=== PATIENT | male | born 1955 | race Caucasian/White ===

== ENCOUNTER → 2022-11-01 14:48 | Outpatient (CLI) | payer MEDICARE, SELFPAY ==
--- NOTE | 2022-11-01 14:53 | MR_ITS ---
PROCEDURE INFORMATION: Exam: MR Lumbar Spine Without Contrast Exam date and time: 11/01/2022 2:55 PM Age: 66 years old Clinical indication: Low back pain; Additional info: Bilateral lbp worsr on left side. Right leg pain, numbness and tingling. TECHNIQUE: Imaging protocol: Magnetic resonance imaging of the lumbar spine without contrast. COMPARISON: No relevant prior studies available. FINDINGS: Bones/joints: Unremarkable. No fracture. Normal alignment. Spinal cord: Visualized cord, conus medullaris and cauda equina are unremarkable without compression. L1-L2: No significant disc bulge or herniation. No severe spinal canal stenosis. No significant neural foraminal narrowing. L2-L3: There is a small disc bulge at L2-L3 with bilateral facet arthropathy causes moderate canal narrowing (image 16 series 7) as well as moderate left and mild right neural foraminal narrowing. L3-L4: There is a small disc bulge at L3-L4 with bilateral facet arthropathy causes mild canal narrowing (image 22 series 7), there is mild bilateral neural foraminal narrowing. L4-L5: At L4-L5, there is a right eccentric disc bulge which causes moderate to severe canal narrowing (image 26 series 7) with severe right and mild left neural foraminal narrowing. L5-S1: There is a diffuse disc bulge at L5-S1 which causes moderate to severe canal narrowing (image 31 series 7) with severe bilateral neural foraminal narrowing. Soft tissues: Unremarkable. IMPRESSION: Multilevel degenerative disease as above with degeneration most pronounced at L4-L5 and L5-S1.
--- NOTE | 2022-11-01 14:53 | MR_ITS ---
PROCEDURE INFORMATION: Exam: MR Cervical Spine Without Contrast Exam date and time: 11/01/2022 2:55 PM Age: 66 years old Clinical indication: Neck pain; Additional info: Left sided neck pain with shoulder pain. No injury or trauma TECHNIQUE: Imaging protocol: Magnetic resonance imaging of the cervical spine without contrast. COMPARISON: No relevant prior studies available. FINDINGS: Bones/joints: There is a diffuse disc bulge with bilateral facet arthropathy causes [id number] canal narrowing as well as moderate bilateral neural foraminal narrowing. Spinal cord: Normal signal. No cord compression. C2-C3: No significant disc bulge or herniation. No severe spinal canal stenosis. No significant neural foraminal narrowing. C3-C4: There is a mild diffuse disc bulge and bilateral facet arthropathy at C3-C4 which causes mild canal narrowing (image 9 series 5). There is mild left neural foraminal narrowing. C4-C5: There is a diffuse disc bulge at C4-C5 without significant canal or neural foraminal narrowing. C5-C6: There is a moderate disc bulge at C5-C6 with moderate associated canal narrowing (image 17 series 5), there is severe right and mild left neural foraminal narrowing. C6-C7: No significant disc bulge or herniation. No severe spinal canal stenosis. No significant neural foraminal narrowing. C7-T1: No significant disc bulge or herniation. No severe spinal canal stenosis. No significant neural foraminal narrowing. Soft tissues: Unremarkable. Vasculature: Expected flow voids in the vertebral arteries. IMPRESSION: Multilevel degenerative disease as detailed above, findings are most pronounced at C3-C4 and C5-C6
== END ==
LOC: RAD 14:48
PROVIDERS: PCP Physician Assistant Medical; Visit Provider Physician Assistant Medical
DX: M54.41 Lumbago with sciatica, right side (principal); M54.2 Cervicalgia; G89.29 Other chronic pain
CPT/HCPCS: 72141; 72148; 76376

== ENCOUNTER → 2022-11-24 11:48 | Outpatient (CLI) | payer MEDICARE, SELFPAY ==
--- NOTE | 2022-11-24 | CA_ITS ---
APPROVED REPORT Exam: Pharmacologic Technologist: Josee Galarza Ht: 5 ft 10 in Wt: 191 lbs BSA: 2.05 m2 HR: 76 bpm BP: 160/79 mmHg Rhythm: NSR Indications: CAD, HX OF CABG, Pre Op Clearance Medical History Medications: Aspirin,,,,, Pravastatin,,,,, Metformin,,,,, Carvedilol,,,,, Zolpidem,,,,, DulOXETINE,,,,, Hydrocodone-Acetaminophen,,,,, Furosemide,,,,, Stress Test Details Test: LEXISCAN HR Resting HR: 74 bpm Max Heart Rate (APMHR): 152 bpm Max HR Achieved: 79 bpm Target HR (85% APMHR): 129 bpm % of APMHR: 52 Recovery HR: 72 bpm BP Resting BP: 160.0/79.0 mmHg Max BP: 160.0/79.0 mmHg Recovery BP: 137.0/69.0 mmHg ECG Resting ECG: Normal sinus rhythm, PACs, rightward axis, borderline voltage criteria for LVH, ST abnormalities inferiorly and laterally. Cannot rule out old lateral or septal TN. Stress ECG: No significant ST changes Arrhythmia: PACs, PVCs Clinical Exercise duration: 04:32 min Highest Stage Achieved: Stress ECG Conclusion Symptoms: Shortness of air, mild stomach discomfort. No chest pain. Arrhythmias/Ectopy: Rare PVC. Frequent PACs. ST-T Changes: No significant ST changes Conclusion: Non-diagnostic Lexiscan stress due to baseline abnormalities. Myoview images reported separately. Test Summary REST . . . . . . . Resting REST 02:45 . . 74 . 160/ 79 . . Stage 1 01:00 . . 68 . . . . Stage 2 01:00 . . 76 . . . . Stage 3 01:00 . . 75 . 114/ 68 . . Stage 4 01:00 . . 73 . 135/ 72 . . Stage 4 01:32 . . 68 . 135/ 72 . Stop exercise at 04:32 RECOVERY 01:00 . . 79 . . . . RECOVERY 02:00 . . 69 . . . . RECOVERY 03:00 . . 72 . 141/ 75 . . RECOVERY 04:00 . . 70 . 141/ 75 . . RECOVERY 04:33 . . 76 . 137/ 69 . . Electronically signed by : Henrietta Bryant MD 12/04/2022 19:27:56
--- NOTE | 2022-11-24 11:51 | NM_ITS ---
APPROVED REPORT Exam: Nuclear Stress Test Indication: CAD, CABG X 5, DM , HYPERLIPIDEMIA, FM HX, SOB, PRE-OP Patient Location: Outpatient Stress Tech: Josee Galarza [place] Tech:WILBUR Riley RT(R)(N) Ht: 5 ft 10 in Wt: 192 lbs HR: 74 bpm BP: 160/79 mmHg BSA: 2.05 m2 Rhythm: NSR TID: 0.94 BMI: 27.5 History: CAD, CABG X 5, DM , HYPERLIPIDEMIA, FM HX, SOB, PRE-OP Procedure: Patient received 0.4 mg of intravenous Lexiscan, resting heart rate 74 bpm, resting blood pressure 160/79 mmHg, with Lexiscan maximum heart rate achieved was 76 bpm which is % of the maximum predicted heart rate and blood pressure was 114/68 mmHg. With Lexiscan, patient denied any complaint of chest pain. Cardiac Stress and Resting SPECT Images: Cardiac Stress and Resting SPECT images were obtained using technetium 99m Myoview 31.7 mCi stress and 10.51 mCi at rest. Resting and stress imaging in both supine and prone positions demonstrate a medium sized, moderate, fixed perfusion defect in the mid to distal anterior and anteroapical regions, as well as a predominantly fixed perfusion defect in the basal inferior LV wall with minimal regions of reversibility. Gated imaging demonstrates mild to moderate reduction in LV systolic function. There is moderate hypokinesis of the basal inferior LV wall at the distal anterior LV wall. LVEF is calculated at 40%. Conclusion: Medium sized, moderate, fixed perfusion defect in the mid to distal anterior and anteroapical regions, as well as a predominantly fixed perfusion defect in the basal inferior LV wall with minimal regions of reversibility. 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 Gated imaging demonstrates mild to moderate reduction in LV systolic function. There is moderate hypokinesis of the basal inferior LV wall at the distal anterior LV wall. LVEF is calculated at 40%. Electronically signed by : Henrietta Bryant MD 12/04/2022 19:33:57
--- NOTE | 2022-11-24 12:28 | CA_ITS ---
APPROVED REPORT EXAM: Comprehensive 2D, Doppler, and color-flow Echocardiogram Access Nurse: Genesis Oliveros, RCS, RVS Ht: 5 ft 10 in Wt: 192lbs BSA: 2.05 BP: 161/89 mmHg Indications: CABG, AK, Hx-CAD, CM, SOB, Pre-op clearance 2D Dimensions IVSd 0.94 cm M: 0.6-1.2 LVEF (Visual) 51.00 % PWd 1.11 cm M: 0.6 - 1.2 LA Volume 54.30 mL LVDd 5.72 cm M: 4.2 - 5.9 LA Volume Index 26.49 mL/m2 (M/F) 16-34 LVDs 4.21 cm M: 2.5 - 4.0 Aortic Root 3.14 cm M: 3.1 - 3.7 Left Atrium 4.30 cm M: 3.0 - 4.0 LVOT 2.09 cm (M/F) 1.5-2.5 M-Mode Dimensions LA Diam 4.77 cm (1.9-4.0) Ao Diam 3.22 cm (2.0-3.7) EPSs 1.37 cm TAPSE 2.13 (<1.7) LV Diastology E Decel Time 223.00 (160-240 msec) E/A Ratio 0.83 MED E' 6.30 (< 7 cm/sec) MED A' 10.30 cm/s E'/MED E' Ratio 8.13 (>14) LAT E' 9.20 (<10 cm/sec) LAT A' 10.80 cm/s E/LAT E' Ratio 5.57 (>14) Aortic Valve LVOT Max 70.00 (70-110 cm/s) LVOT VTI 12.57 cm AoV Peak Randy. 98.00 (50-130 cm/s) AO Peak GR. 3.90 mmHg AO Mean GR. 1.90 (<5 mmHg) AO VTI 18.15 (18-25 cm) GEORGE (VTI) 2.38 (2.5-4.5 cm2) Mitral Valve MV A Velocity 62.00 (40-130 cm/s) E/A Ratio 0.83 MV Decel. Time 223.00 (160-240 ms) Pulmonary Valve PV Peak Velocity 90.00 (50-150 cm/s) Left Ventricle The left ventricle is normal size. The left ventricular systolic function is low normal. The left ventricular ejection fraction is within the normal range. There is normal left ventricular wall thickness. There is mild hypokinesis of the anterior and anteroseptal LV powell The left ventricular diastolic function is normal. LVEF is 50%. Right Ventricle The right ventricle is normal size. The right ventricular systolic function is normal. Atria The left atrium size is normal. The right atrium size is normal. There is no Doppler evidence of interatrial shunt. Aortic Valve The aortic valve is mildly thickened. There is no aortic valvular stenosis. No aortic regurgitation is present. Mitral Valve The mitral valve is mildly thickened. No evidence of mitral valve stenosis. Trace mitral regurgitation. Tricuspid Valve The tricuspid valve leaflets are thin and pliable. Trace tricuspid regurgitation. RVSP is normal. Pulmonic Valve The pulmonary valve is normal in structure. Mild pulmonic regurgitation. Great Vessels The aortic root is normal in size. The ascending aorta is not well visualized. IVC is normal in size and collapses >50% with inspiration. Pericardium There is no pericardial effusion. Other Information Study Quality: Fair Conclusion Low-normal LV systolic function (LVEF 50%) Mild hypokinesis of the anterior and anteroseptal LV powell No significant valvular stenosis or regurgitation Electronically signed by : Henrietta Bryant, 11/29/2022 12:04:35
== END ==
LOC: RAD 11:49
PROVIDERS: PCP Family Medicine; Visit Provider Physician Assistant
DX: E11.9 Type 2 diabetes mellitus without complications (principal); I25.2 Old myocardial infarction; R07.9 Chest pain, unspecified; Z95.1 Presence of aortocoronary bypass graft; Z79.84 Long term (current) use of oral hypoglycemic drugs
CPT/HCPCS: 78452; 93017; 93306; A9502; J2785

== ENCOUNTER → 2022-12-23 17:10 | Outpatient (CLI) | payer MEDICARE, SELFPAY ==
[2022-12-23 17:51] LABS: Anion Gap 14.3 mEq/L (5-15); Blood Urea Nitrogen 18 mg/dl (9-20); Carbon Dioxide 29 mmol/L (22.0-30.0); Chloride 97 mmol/L (98-107); Estimated Glomerular Filt Rate 74 ml/min (>60); GFR (African American) 90 ML/MIN (>60); Glucose 279 mg/dl (74-100); Potassium 4.3 mmoL/L (3.5-5.1); Sodium 136 mmol/L (136-145)
[2022-12-23 18:00] LABS: NT Pro Brain Natriuretic Pep. 355 pg/mL (0-125)
== END ==
PROVIDERS: PCP Physician Assistant; Visit Provider Physician Assistant
DX: E11.9 Type 2 diabetes mellitus without complications (principal); I25.2 Old myocardial infarction; Z95.1 Presence of aortocoronary bypass graft; I50.1 Left ventricular failure, unspecified; I11.0 Hypertensive heart disease with heart failure; Z87.891 Personal history of nicotine dependence; Z79.84 Long term (current) use of oral hypoglycemic drugs
CPT/HCPCS: 80048; 83880